=== PATIENT | female | born 1935 | race Caucasian/White ===

== ENCOUNTER 2016-06-02 14:44 | Observation (INO) | payer MEDICARE, BC ==
[2016-06-02] MEDS ORDERED: ASPIRIN 81 MG TABLET, CHEWABLE PO ONE (15:53)
--- NOTE | 2016-06-02 15:56 | ER Document Report ---
ED Medical Screen (RME) - General Stated Complaint: CHEST PAIN Mode of Arrival: Wheelchair Information source: Patient Notes: 80 y/o F presents to ED c/o episode of chest pressure. Reports onset was this morning with radiation to jaw and associated diaphoresis and generalized weakness. Denies fever or recent illness. I have greeted and performed a rapid initial assessment of this patient. A comprehensive ED assessment and evaluation of the patient, analysis of test results and completion of the medical decision making process will be conducted by additional ED providers. TRAVEL OUTSIDE OF THE [place] IN LAST 30 DAYS: No - Related Data Allergies/Adverse Reactions: No Known Allergies Allergy (Verified 06/02/16 15:53) Physical Exam - Vital signs Vitals: Temp Pulse Resp BP Pulse Ox 98.1 F 86 16 119/77 96 06/02/16 15:27 06/02/16 15:27 06/02/16 15:27 06/02/16 15:27 06/02/16 15:27 - General General appearance: Appears well, Alert In distress: None - Respiratory Respiratory status: No respiratory distress Breath sounds: Normal - Cardiovascular Rhythm: Regular Pulses: Normal: Radial Normal capillary refill: Yes Course - Vital Signs Vital signs: Temp Pulse Resp BP Pulse Ox 98.1 F 86 16 119/77 96 06/02/16 15:27 06/02/16 15:27 06/02/16 15:27 06/02/16 15:27 06/02/16 15:27
--- NOTE | 2016-06-02 16:37 | EKG REPORT ---
SEVERITY:- BORDERLINE ECG - SINUS RHYTHM BORDERLINE T ABNORMALITIES, ANTERIOR LEADS : Confirmed by: Diandra Blair MD 02-Jun-2016 16:35:18
[2016-06-02 17:09] LABS: ABSOLUTE LYMPHOCYTES (AUTO) 1.5 10^3/uL (0.5-4.7); ABSOLUTE MONOCYTES (AUTO) 0.9 10^3/uL (0.1-1.4); ABSOLUTE NEUT (AUTO) 2.4 10^3/uL (1.7-8.2); BASOPHILS % (AUTO) 0.3 % (0-2); EOSINOPHILS % (AUTO) 0.3 % (0-6); HEMATOCRIT 42.9 % (36.0-47.0); HEMOGLOBIN 14.2 g/dL (12.0-15.5); HGB HCT DIFFERENCE -0.3; LYMPHOCYTES % (AUTO) 30.7 % (13-45); MEAN CORPUSCULAR HEMOGLOBIN 30.7 pg (27.0-33.4); MEAN CORPUSCULAR HGB CONC 33.2 g/dL (32.0-36.0); MEAN CORPUSCULAR VOLUME 93 fl (80-97); MONOCYTES % (AUTO) 18.9 % (3-13); RED BLOOD COUNT 4.63 10^6/uL (3.72-5.28); RED CELL DISTRIBUTION WIDTH 14.3 % (11.5-14.0); SEGMENTED NEUTROPHILS % (AUTO) 49.8 % (42-78); WHITE BLOOD COUNT 4.8 10^3/uL (4.0-10.5)
[2016-06-02 17:26] LABS: ALANINE AMINOTRANSFERASE 35 U/L (9-52); ALBUMIN 4.3 g/dL (3.5-5.0); ALKALINE PHOSPHATASE 99 U/L (38-126); ANION GAP 12 (5-19); ASPARTATE AMINO TRANSFERASE 23 U/L (14-36); BILIRUBIN,TOTAL 0.9 mg/dL (0.2-1.3); BLOOD UREA NITROGEN 21 mg/dL (7-20); CARBON DIOXIDE 25 mmol/L (22-30); CHLORIDE 105 mmol/L (98-107); CREATINE KINASE 41 U/L (30-135); CREATININE RESULT 0.95 mg/dL (0.52-1.25); GLUCOSE 98 mg/dL (75-110); POTASSIUM 4.8 mmol/L (3.6-5.0); TOTAL PROTEIN 7.8 g/dL (6.3-8.2)
[2016-06-02 17:38] LABS: CREATINE KINASE MB 1.27 ng/mL (<4.55); TROPONIN I 0.015 ng/mL
[2016-06-02] MEDS ORDERED: NORMAL SALINE 1000 ML 1,000 ML IV ONE (18:31)
--- NOTE | 2016-06-02 18:43 | ER Document Report ---
ED General - General Chief Complaint: Chest Pain > 30 Stated Complaint: CHEST PAIN Time seen by provider: 18:25 Mode of Arrival: Wheelchair Information source: Patient Notes: 80-year-old female who states she woke up about 2:30 this morning with midsternal chest tightness radiating into her jaw associated with diaphoresis. She reports she had multiple episodes during the night which would last less than 30 minutes and then resolve in a serious episode was about 7:30 this morning. This is what prompted her to seek medical care today. He reports being pain-free now. He reports for many years she had a sensation of heart fluttering or jumping that would sometimes wake her up at night but she had not had that sensation today and has not had this type of chest discomfort before. She denies any prior cardiac workup except for an echocardiogram many years ago. 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 She reports with her chest discomfort she has not had any shortness of breath nausea or vomiting but family whether reports that she has had dyspnea on exertion over the past few months that is undertreated COPD. She denies swelling to extremities. She denies vomiting diarrhea or dysuria. She is blind and cannot state whether she's had any hematemesis or melena. She denies any abdominal pain, back pain, numbness weakness to extremities, or syncope. Physical Exam: General: Alert, appears well. HEENT: Normocephalic. Atraumatic. PERRLA. Extraocular movements intact. Oropharynx clear. Neck: Supple. Non-tender. Respiratory: No respiratory distress. Clear and equal breath sounds bilaterally. Not tender to palpation Cardiovascular: Regular rate and rhythm. Abdominal: Normal Inspection. Soft, non-tender. No distension. Normal Bowel Sounds. Back: Non-tender. No deformity or step off. Extremities: Moves all four extremities. Upper extremities: Normal inspection. Non-tender. Normal color. Normal ROM. Normal temperature. Lower extremities: Normal inspection. Non-tender. No edema. Normal color. Normal ROM. Normal temperature. Neurological: Speech clear mentation normal. Animal Shelter Worker strength 5 out of 5 equal both upper extremities motor function 5 out of 5 equal both lower extremities Psychological: Normal affect. Normal Mood. Skin: Warm. Dry. Normal color. TRAVEL OUTSIDE OF THE [place] 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 denies: Cough Gastrointestinal: See HPI. denies: Abdominal pain, Diarrhea, Nausea, Vomiting Genitourinary: denies: Burning, Dysuria Female Genitourinary: denies: Musculoskeletal: denies: Back pain, Muscle pain Hematologic/Lymphatic: denies: Swollen glands Neurological/Psychological: denies: Weakness, Numbness Physical Exam - Vital signs Vitals: Temp Pulse Resp BP Pulse Ox 98.1 F 86 16 119/77 96 06/02/16 15:27 06/02/16 15:27 06/02/16 15:27 06/02/16 15:27 06/02/16 15:27 Course - Re-evaluation Re-evalutation: 06/02/16 18:44 Patient has symptoms compatible with acute coronary syndrome. She did receive full dose aspirin and is pain-free now. I discussed case with Dr. Trammell of the hospitalist service and he accepts the patient requesting telemetry observation bed Patient has hypercalcemia currently and will receive IV fluids for that. She reports a prior history of thi but doesn't recall prior values however in July 2014 she was 11.4 06/02/16 18:46 - Vital Signs Vital signs: Temp Pulse Resp BP Pulse Ox 98.1 F 86 16 119/77 96 06/02/16 15:27 06/02/16 15:27 06/02/16 15:27 06/02/16 15:27 06/02/16 15:27 - Laboratory Result Diagrams: 06/02/16 16:50 06/02/16 16:50 Laboratory results interpreted by me: 06/02/16 06/02/16 16:50 16:50 RDW 14.3 H Plt Count 54 L Monocytes % 18.9 H BUN 21 H Est GFR (Non-Af Amer) 57 L Calcium 13.0 H* - Diagnostic Test Radiology reviewed: Image reviewed, Reports reviewed - EKG Interpretation by Me Additional EKG results interpreted by me: 06/02/16 18:43 EKG reviewed by myself shows sinus rhythm at 86 with an animal nonspecific T- wave changes Discharge - Discharge Clinical Impression: Hypercalcemia, History of idiopathic thrombocytopenic purpura Chest pain Qualifiers: Chest pain type: unspecified Qualified Code(s): R07.9 - Chest pain, unspecified Condition: Fair Disposition: ADMITTED OBSERVATION Admitting Provider: Hospitalist Unit Admitted: Telemetry
[2016-06-02 19:19] LABS: LIPASE 124.5 U/L (23-300); MAGNESIUM 2.2 mg/dL (1.6-2.3)
[2016-06-02 19:20] LABS: PARTIAL THROMBOPLASTIN TIME 33.1 SEC (23.5-35.8)
[2016-06-02] MEDS ORDERED: ACETAMINOPHEN 325 MG TABLET PO PRN (19:54)
[2016-06-02 20:22] LABS: APPEARANCE,URINE SLIGHTLY-CLOUDY; BILIRUBIN,URINE NEGATIVE (NEGATIVE); CALCIUM OXALATE CRYSTALS,URINE FEW /HPF; GLUCOSE, URINE NEGATIVE (NEGATIVE); KETONES,URINE TRACE mg/dL (NEGATIVE); LEUKOCYTE ESTERASE,URINE NEGATIVE (NEGATIVE); NITRITE,URINE NEGATIVE (NEGATIVE); PROTEIN,URINE NEGATIVE (NEGATIVE); URINE SPECIFIC GRAVITY 1.025; UROBILINOGEN,URINE NEGATIVE mg/dL (<2.0)
[2016-06-02 21:19] LABS: ANION GAP 9 (5-19); BLOOD UREA NITROGEN 20 mg/dL (7-20); CALCIUM 11.8 mg/dL (8.4-10.2); CARBON DIOXIDE 25 mmol/L (22-30); CHLORIDE 108 mmol/L (98-107); CREATININE RESULT 0.91 mg/dL (0.52-1.25); GLUCOSE 93 mg/dL (75-110); POTASSIUM 4.3 mmol/L (3.6-5.0)
[2016-06-03] MEDS ORDERED: MAG HYDROX/AL HYDROX/SIMETH SUSP 30 ML UDCUP PO PRN (07:51)
[2016-06-03] MEDS ORDERED: PROMETHAZINE HCL INJ 25 MG/1 ML VIAL IV PRN (08:01)
[2016-06-03 08:25] LABS: CHOLESTEROL 161.82 mg/dL (0-200); Direct HDL 55 mg/dL (>40); TRIGLYCERIDES 67 mg/dL (<150)
[2016-06-03 08:40] LABS: DIRECT LDL 78 mg/dL (<100)
--- NOTE | 2016-06-03 08:57 | PDOC H&P ---
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 The initial several episodes lasted approximately 30 minutes each and were slightly uncomfortable. However, approximately 7:30 AM the morning of the , she had a quite significant painful episode. This prompted her to seek medical care. She's had intermittent episodes of what she describes as heart fluttering or jumping that would sometimes wake her up at night along with mild associated chest tightness and perhaps some shortness of breath. However, this is quite different than the painful episodes that led her to come to the emergency room. Her only previous cardiac workup consisted of a distant history of an echocardiogram, with uncertain results. No previous myocardial infarction or congestive heart failure. No history of pulmonary embolus or DVT. No recent long trip with prolonged inactivity, or unusual lower extremity swelling or tenderness. Negative family history of coronary artery disease. Currently resting quietly, chest pain-free since the last episode caused such significant pain the morning of the . Underlying COPD; patient is a former smoker. 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 Patient has been discussed with emergency room physician who evaluated the patient. . Laboratory results are listed in [facility] and are reviewed. X-ray summary results are listed below, with full report(s) reviewed. . EKG reviewed. No old EKG available for comparison. Social history/personal habits: . Lives with daughter. Former smoker. No alcohol use for many years. No illicit drug use. Allergies/adverse reactions are listed in [facility] and are reviewed. Home medications are reviewed and have [facility] Home medications initially autopopulated into [facility] may not accurately reflect patient's true medications, dosages, and/or frequencies. REVIEW OF SYSTEMS: Constitutional: No fever or chills. Eyes: Legally blind. ENT: No swallowing problems or complaints. No hearing problems or complaints. Pulmonary: See history and present illness. Cardiovascular: See history and present illness. Gastrointestinal: No current complaints, including nausea or vomiting. Skin: Chronic intermittent rash, primarily involving the skin over her anterior chest. Hematologic: No unusual easy bruising or bleeding. Easy bruising. Neurologic: No current complaints, including numbness or tingling. Musculoskeletal: No current complaints, including painful joints. Psychiatric: No current complaints, including anxiety or depression. Endocrine: No current complaints, including polyuria. Genitourinary: No current complaints, including dysuria. PHYSICAL EXAMINATION: 5 feet 2 inches tall. 74.9 kg. Temperature 97.8. Respirations are 17 and unlabored. 99% saturation on room air. Pulse 66 and regular. Blood pressure 148/75. Slightly overweight otherwise well-nourished well-developed elderly female who appears a fair number of younger than her stated age. Pleasant awake alert and cooperative. Her daughter is present at her side; patient approves. Skin is warm and dry. No grossly obvious evidence of rash in areas of skin examined. No subcutaneous nodules palpated. ENT: Hearing grossly normal to normal conversation. Tongue midline on protrusion pink and slightly moist. Eyes: No scleral icterus. Pupils equal and reactive to light at 5 mm. [place] conjunctivae. Neck is supple and nontender to gentle active range of motion and palpation. Midline trachea. No palpable thyroid nodule mass enlargement or tenderness. Lymphatic: No palpable cervical or clavicular nodes. Neck and lymphatic exams limited by patient body habitus. Psychiatric: Reasonable insight into acute and chronic medical issues. Oriented to time location and why here. Lungs: Auscultation reveals clear and equal breath sounds bilaterally. No use of accessory respiratory muscles. Cardiovascular: Heart regular rate and rhythm, without gallop murmur or rub. No carotid or abdominal aortic bruits. No ankle or pedal edema. Faintly palpable dorsalis pedis pulses. Abdomen: soft, slightly obese, nontender with positive bowel sounds. No upper abdominal mass or organomegaly palpated. Compression in either her upper abdomen nor sternum reproduces her previously noted chest discomfort. Extremities: Feet are warm and dry. No calf tenderness to compression. No grossly obvious visual evidence of calf swelling. Gentle manipulation of lower extremities fails to reveal any obvious evidence of injury or instability to knees hips or ankles. Neurologic: Moves upper extremities grossly normally. Patellar reflexes absent. Absent Babinski. Light touch is intact at feet. Dorsiflexion and plantarflexion of feet 5 / 5 and symmetric. 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, Ears - Slightly hard of hearing Denies: Throat Neurological Medical History: Denies: Hemorrhagic CVA, Ischemic CVA, Seizures Endocrine Medical History: Reports: Other - Chronic hypercalcemia, due to chronic single gland hyperparathyroidism Denies: Diabetes Mellitus Type 1, Diabetes Mellitus Type 2, Hyperthyroidism, Hypothyroidism Renal/ Medical History: Reports: None GI Medical History: Reports: Gastroesophageal Reflux Disease - Mild Denies: Cirrhosis, Hepatitis, Peptic Ulcer Disease Musculoskeltal Medical History: Denies: Arthritis Skin Medical History: Reports: Other - Chronic intermittent skin rash over her anterior chest Psychiatric Medical History: Denies: Alcohol Dependency, Depression, General Anxiety Disorder, Substance Abuse, Tobacco Dependency Hematology: Reports: Other - Chronic thrombocytopenia due to chronic ITP. Infectious Medical History: Denies: Hepatitis B, Hepatitis C Past Surgical History Past Surgical History: Reports: Appendectomy, Tonsillectomy, Other - Foot surgery Social History Information Source: Patient, Emergency Med Personnel, [facility] Records Lives with: Family Smoking Status: Former Smoker Number of Years Smokin Last Time Smoked: 40years ago Frequency of Alcohol Use: None Drugs: None - Advance Directive Resuscitation Status: Full Code Surrogate healthcare decision maker:: Daughter Iris Family History Family History: denies: CAD Parental Family History Reviewed: Yes Children Family History Reviewed: Yes Sibling(s) Family History Reviewed.: Yes Medication/Allergy Home Medications: Cholecalciferol (Vitamin D3) [Vitamin D3 2000 unit Tablet] 2,000 unit PO DAILY 06/02/16 Famotidine [Pepcid 20 mg Tablet] 20 mg PO Q2D PRN 06/02/16 Ibuprofen [Motrin Ib] 200 mg PO DAILYP PRN 06/02/16 Lisinopril [Prinivil] 10 mg PO DAILY 06/02/16 Allergies/Adverse Reactions: Sulfa (Sulfonamide Antibiotics) Adverse Reaction (Verified 06/03/16 06:06) Physical Exam Vital Signs: Temp Pulse Resp BP Pulse Ox 97.8 F 59 L 17 148/75 H 99 06/03/16 05:00 06/03/16 07:32 06/03/16 05:00 06/03/16 05:00 06/03/16 05:00 Intake & Output 06/02/16 06/03/16 06/04/16 00:59 00:59 00:59 Intake Total 1180 Output Total 0 Balance 1180 Weight 74.9 kg Results Laboratory Results: 06/02/16 20:47 06/02/16 06/02/16 19:40 20:47 Sodium 142.0 Potassium 4.3 Chloride 108 H Carbon Dioxide 25 Anion Gap 9 BUN 20 Creatinine 0.91 Est GFR ( Amer) > 60 Est GFR (Non-Af Amer) > 60 Glucose 93 Calcium 11.8 H Urine Color YELLOW Urine Appearance SLIGHTLY-CLOUDY Urine pH 5.0 Ur Specific [place] 1.025 Urine Protein NEGATIVE Urine Glucose (UA) NEGATIVE Urine Ketones TRACE H Urine Blood MODERATE H Urine Nitrite NEGATIVE Ur Leukocyte Esterase NEGATIVE Urine WBC (Auto) 7 Urine RBC (Auto) 15 06/03/16 06/03/16 01:13 01:44 Troponin I Cancelled 0.016 Impressions: Chest X-Ray 06/02/16 15:53 IMPRESSION: No acute findings. Assessment & Plan - Diagnosis (1) Chest pain Qualifiers: Chest pain type: unspecified Qualified Code(s): R07.9 - Chest pain, unspecified Is this a current diagnosis for this admission?: YesPlan: Patient will be placed in observation bed under chest pain protocol. Patient understands to notify staff should chest pain recur. Serial troponin's . Repeat EKG. lipid panel. I have strongly encouraged patient not to get out of bed without notifying staff , to avoid a fall with injury. Knee high SCDs for DVT prophylaxis. Along with subcutaneous Lovenox . Impression and plans were discussed with patient, and daughter, both of whom concur. Time spent in evaluation and management of patient: 64 minutes. (2) Hypercalcemia Is this a current diagnosis for this admission?: YesPlan: From review of prior labs, current level is acceptable. Followed as outpatient by endocrinology. (3) Thrombocytopenia Is this a current diagnosis for this admission?: YesPlan: Stable, compared to prior lab. (4) HTN (hypertension) Qualifiers: Hypertension type: essential hypertension Qualified Code(s): I10 - Essential (primary) hypertension Is this a current diagnosis for this admission?: YesPlan: Resume home medications as appropriate once these have been reviewed. (5) MVP (mitral valve prolapse) Is this a current diagnosis for this admission?: Yes
[2016-06-03] MEDS ORDERED: (PENDING PHARMACY ID) (Lisinopril [Prinivil] 10 MG) PO SCH (10:00)
[2016-06-03] MEDS ORDERED: ENOXAPARIN SODIUM INJ 40 MG/0.4 ML DISP.SYRIN SUBCUT SCH (10:00)
[2016-06-03] MEDS ORDERED: (PENDING PHARMACY ID) (Cholecalciferol (Vitamin D3) [Vitamin D3 2000 Unit Tablet] 2,000 UN PO SCH (10:00)
[2016-06-03] MEDS: DOCUSATE SODIUM 100 MG CAPSULE PO SCH ×2 (10:29→17:38)
[2016-06-03] MEDS: ASPIRIN 81 MG TABLET, ENT COATED PO SCH (10:29)
[2016-06-03] MEDS: CHOLECALCIFEROL (D3) 1,000 UNIT TABLET PO SCH (10:29)
[2016-06-03] MEDS: LISINOPRIL 10 MG TABLET PO SCH (10:31)
--- NOTE | 2016-06-03 16:40 | PDOC PROGRESS REPORT ---
Subjective Progress Note for:: 06/03/16 Subjective:: The patient was seen earlier today on rounds. The patient denies any nausea, vomiting, diarrhea, shortness of breath, dizziness, chest pain, heart palpitations, fevers, or chills. The patient has remained afebrile. Blood pressures have been in a good range. When prompted the patient voices no other concerns at this time. Review of systems: The rest of the review of systems is negative. Physical Exam Vital Signs: Temp Pulse Resp BP Pulse Ox 98.1 F 61 20 142/62 H 100 06/03/16 11:35 06/03/16 11:35 06/03/16 11:35 06/03/16 11:35 06/03/16 11:35 General appearance: PRESENT: no acute distress, cooperative, well-developed, well-nourished Head exam: PRESENT: atraumatic, normocephalic Eye exam: PRESENT: conjunctiva pink, EOMI, PERRLA. ABSENT: scleral icterus Ear exam: PRESENT: normal external ear exam Mouth exam: PRESENT: moist, tongue midline Neck exam: ABSENT: carotid bruit, JVD, lymphadenopathy, thyromegaly Respiratory exam: PRESENT: clear to auscultation linda, symmetrical, unlabored. ABSENT: rales, rhonchi, tachypnea, wheezes Cardiovascular exam: PRESENT: RRR. ABSENT: diastolic murmur, rubs, systolic murmur Pulses: PRESENT: normal dorsalis pedis pul Vascular exam: PRESENT: normal capillary refill GI/Abdominal exam: PRESENT: normal bowel sounds, soft. ABSENT: distended, guarding, mass, organolmegaly, rebound, tenderness Rectal exam: PRESENT: deferred Extremities exam: PRESENT: full ROM. ABSENT: calf tenderness, clubbing, pedal edema Neurological exam: PRESENT: alert, awake, oriented to person, oriented to place , oriented to time, oriented to situation, CN II-XII grossly intact. ABSENT: motor sensory deficit Psychiatric exam: PRESENT: appropriate affect, normal mood. ABSENT: homicidal ideation, suicidal ideation Skin exam: PRESENT: dry, intact, warm. ABSENT: cyanosis, rash Results Laboratory Results: Labs- Last Values WBC 4.8 10^3/uL (4.0-10.5) 06/02/16 16:50 RBC 4.63 10^6/uL (3.72-5.28) 06/02/16 16:50 Hgb 14.2 g/dL (12.0-15.5) 06/02/16 16:50 Hct 42.9 % (36.0-47.0) 06/02/16 16:50 MCV 93 fl (80-97) 06/02/16 16:50 MCH 30.7 pg (27.0-33.4) 06/02/16 16:50 MCHC 33.2 g/dL (32.0-36.0) 06/02/16 16:50 RDW 14.3 % (11.5-14.0) H 06/02/16 16:50 Plt Count 54 10^3/uL (150-450) L 06/02/16 16:50 Seg Neutrophils % 49.8 % (42-78) 06/02/16 16:50 Lymphocytes % 30.7 % (13-45) 06/02/16 16:50 Monocytes % 18.9 % (3-13) H 06/02/16 16:50 Eosinophils % 0.3 % (0-6) 06/02/16 16:50 Basophils % 0.3 % (0-2) 06/02/16 16:50 Absolute Neutrophils 2.4 10^3/uL (1.7-8.2) 06/02/16 16:50 Absolute Lymphocytes 1.5 10^3/uL (0.5-4.7) 06/02/16 16:50 Absolute Monocytes 0.9 10^3/uL (0.1-1.4) 06/02/16 16:50 Absolute Eosinophils 0.0 10^3/uL (0.0-0.6) 06/02/16 16:50 Absolute Basophils 0.0 10^3/uL (0.0-0.2) 06/02/16 16:50 PT 13.0 SEC (11.4-15.4) 06/02/16 16:50 INR 0.95 06/02/16 16:50 APTT 33.1 SEC (23.5-35.8) 06/02/16 16:50 Sodium 142.0 mmol/L (137-145) 06/02/16 20:47 Potassium 4.3 mmol/L (3.6-5.0) 06/02/16 20:47 Chloride 108 mmol/L (98-107) H 06/02/16 20:47 Carbon Dioxide 25 mmol/L (22-30) 06/02/16 20:47 Anion Gap 9 (5-19) 06/02/16 20:47 BUN 20 mg/dL (7-20) 06/02/16 20:47 Creatinine 0.91 mg/dL (0.52-1.25) 06/02/16 20:47 Est GFR ( Amer) > 60 (>60) 06/02/16 20:47 Est GFR (Non-Af Amer) > 60 (>60) 06/02/16 20:47 Glucose 93 mg/dL (75-110) 06/02/16 20:47 Calcium 11.8 mg/dL (8.4-10.2) H 06/02/16 20:47 Magnesium 2.2 mg/dL (1.6-2.3) 06/02/16 16:50 Total Bilirubin 0.9 mg/dL (0.2-1.3) 06/02/16 16:50 Direct Bilirubin 0.0 mg/dL (0.0-0.3) 06/02/16 16:50 AST 23 U/L (14-36) 06/02/16 16:50 ALT 35 U/L (9-52) 06/02/16 16:50 Alkaline Phosphatase 99 U/L (38-126) 06/02/16 16:50 Creatine Kinase 41 U/L (30-135) 06/02/16 16:50 CK-MB (CK-2) 1.27 ng/mL (<4.55) 06/02/16 16:50 Troponin I 0.021 ng/mL 06/03/16 07:08 Total Protein 7.8 g/dL (6.3-8.2) 06/02/16 16:50 Albumin 4.3 g/dL (3.5-5.0) 06/02/16 16:50 Triglycerides 67 mg/dL (<150) 06/03/16 07:08 Cholesterol 161.82 mg/dL (0-200) 06/03/16 07:08 LDL Cholesterol Direct 78 mg/dL (<100) 06/03/16 07:08 VLDL Cholesterol 13.0 mg/dL (10-31) 06/03/16 07:08 HDL Cholesterol 55 mg/dL (>40) 06/03/16 07:08 Lipase 124.5 U/L (23-300) 06/02/16 16:50 Urine Color YELLOW 06/02/16 19:40 Urine Appearance SLIGHTLY-CLOUDY 06/02/16 19:40 Urine pH 5.0 (5.0-9.0) 06/02/16 19:40 Ur Specific [place] 1.025 06/02/16 19:40 Urine Protein NEGATIVE mg/dL (NEGATIVE) 06/02/16 19:40 Urine Glucose (UA) NEGATIVE mg/dL (NEGATIVE) 06/02/16 19:40 Urine Ketones TRACE mg/dL (NEGATIVE) H 06/02/16 19:40 Urine Blood MODERATE (NEGATIVE) H 06/02/16 19:40 Urine Nitrite NEGATIVE (NEGATIVE) 06/02/16 19:40 Urine Bilirubin NEGATIVE (NEGATIVE) 06/02/16 19:40 Urine Urobilinogen NEGATIVE mg/dL (<2.0) 06/02/16 19:40 Ur Leukocyte Esterase NEGATIVE (NEGATIVE) 06/02/16 19:40 Urine WBC (Auto) 7 /HPF 06/02/16 19:40 Urine RBC (Auto) 15 /HPF 06/02/16 19:40 U Hyaline Cast (Auto) 15 /LPF 06/02/16 19:40 Squamous Epi Cells Auto <1 /HPF 06/02/16 19:40 Calcium Oxalate Cr Auto FEW /HPF 06/02/16 19:40 Urine Mucus (Auto) OCC /LPF 06/02/16 19:40 Urine Ascorbic Acid 20 (NEGATIVE) H 06/02/16 19:40 Impressions: Chest X-Ray 06/02/16 15:53 IMPRESSION: No acute findings. Assessment & Plan - Diagnosis (1) Chest pain Qualifiers: Chest pain type: unspecified Qualified Code(s): R07.9 - Chest pain, unspecified Is this a current diagnosis for this admission?: YesPlan: Given the patient's risk factors and inability to stress test discussed the case with cardiology who is graciously agreed the patient. Obtain echocardiogram given the patient's previous history of possible mitral valve prolapse and no follow-up the patient does admit to some heart palpitations. (2) Chronic ITP (idiopathic thrombocytopenic purpura) Is this a current diagnosis for this admission?: YesPlan: The patient is ambulatory will discontinue heparin (3) Hypercalcemia Is this a current diagnosis for this admission?: YesPlan: Will continue home medications. (4) Thrombocytopenia Is this a current diagnosis for this admission?: Yes (5) HTN (hypertension) Qualifiers: Hypertension type: essential hypertension Qualified Code(s): I10 - Essential (primary) hypertension Is this a current diagnosis for this admission?: Yes (6) Hyperparathyroidism Is this a current diagnosis for this admission?: Yes (7) Legally blind Is this a current diagnosis for this admission?: Yes (8) MVP (mitral valve prolapse) Is this a current diagnosis for this admission?: Yes (9) Retinitis pigmentosa of both eyes Is this a current diagnosis for this admission?: Yes - Time Time Spent with patient: 35 or more minutes Medications reviewed and adjusted accordingly: Yes Anticipated discharge: Home Within: within 24 hours
[2016-06-03] MEDS: LANSOPRAZOLE 30 MG TAB.RAP.DR PO SCH (17:37)
--- NOTE | 2016-06-03 18:06 | EKG REPORT ---
SEVERITY:- ABNORMAL ECG - SINUS RHYTHM FIRST DEGREE AV BLOCK BORDERLINE T ABNORMALITIES, ANTERIOR LEADS : Confirmed by: Diandra Blair MD 03-Jun-2016 18:04:23
--- NOTE | 2016-06-03 18:23 | XCELERA REPORT ---
[address] [address] Transthoracic Echocardiogram Report Name: WERNER SCHAEFFER Age: 80 yrs Gender: Female : 1935 Patient Status: Inpatient Patient Location: \S\[facility]\S\A Study Date: 06/03/2016 03:16 PM Height: 62 in Weight: 165 lb BSA: 1.8 m2 Procedure: A complete two-dimensional transthoracic echocardiogram was performed (2D, M-mode, spectral and color flow Doppler). The study was technically difficult with many images being suboptimal in quality. Reason For Study: CP Ordering Physician: LINUS MONDRAGON Performed By: Jhony Devi Interpretation Summary The left ventricular ejection fraction is normal. Doppler measurements suggest impaired left ventricular relaxation, which is associated with grade I/IV or mild diastolic dysfunction There is normal left ventricular wall thickness. The left ventricle is grossly normal size. Wall motion cannot be accurately commented on, but no definite regional wall motion abnormalities noted. The right ventricular systolic function is normal. The right ventricle is mildly dilated. The right atrium is mildly dilated. Borderline left atrial enlargement. There is a mild amount of mitral regurgitation There is no mitral valve stenosis. There is a mild amount of aortic regurgitation There is no aortic valve stenosis There is a trace to mild amount of tricuspid regurgitation There is mild to moderate pulmonary hypertension by echo Right ventricular systolic pressure is estimated to be elevated at 40- 50mmHg. The aortic root is not well visualized but is probably normal size. The inferior vena cava appeared normal and decreased < 50% with respiration (RAP 10-15 mmHg) There is no pericardial effusion. MMode/2D Measurements \T\ Calculations RVDd: 2.0 cm LVIDd: 4.5 cm FS: 33.7 % Ao root diam: 2.8 cm IVSd: 0.82 cm LVIDs: 3.0 cm EDV(Teich): 94.7 ml LVPWd: 0.78 cm ESV(Teich): 35.4 ml Ao root area: 6.0 cm2 EF(Teich): 62.6 % LA dimension: 3.6 cm Doppler Measurements \T\ Calculations MV E max maegan: MV P1/2t max maegan: Ao V2 max: AI max maegan: 54.4 cm/sec 54.8 cm/sec 146.6 cm/sec 388.9 cm/sec MV A max maegan: MV P1/2t: 63.8 msec Ao max PG: AI max P.0 cm/sec 8.6 mmHg 60.6 mmHg MV E/A: 0.79 MVA(P1/2t): 3.4 cm2 AI dec slope: MV dec slope: 251.4 cm/sec2 189.6 cm/sec2 MV dec time: AI P1/2t: 0.22 sec 600.9 msec LV V1 max PG: PA V2 max: TR max maegan: RAP systole: 3.9 mmHg 98.7 cm/sec 275.5 cm/sec 10.0 mmHg LV V1 max: PA max P.9 mmHg TR max P.7 cm/sec 30.4 mmHg RVSP(TR): 40.4 mmHg Left Ventricle The left ventricle is grossly normal size. There is normal left ventricular wall thickness. The left ventricular ejection fraction is normal. Doppler measurements suggest impaired left ventricular relaxation, which is associated with grade I/IV or mild diastolic dysfunction. Wall motion cannot be accurately commented on, but no definite regional wall motion abnormalities noted. Right Ventricle The right ventricle is mildly dilated. There is normal right ventricular wall thickness. The right ventricular systolic function is normal. Atria The right atrium is mildly dilated. Borderline left atrial enlargement. Interarterial septum not well visualized and not well dopplered. Cannot comment on ASD/PFO presence. Mitral Valve There is mild mitral leaflet calcification. There is no mitral valve stenosis. There is a mild amount of mitral regurgitation. Aortic Valve The aortic valve is mildly calcified. There is no aortic valve stenosis. There is a mild amount of aortic regurgitation. Tricuspid Valve The tricuspid valve is not well visualized secondary to technical limitations. There is no tricuspid stenosis. There is a trace to mild amount of tricuspid regurgitation. There is mild to moderate pulmonary hypertension by echo. Right ventricular systolic pressure is estimated to be elevated at 40-50mmHg. Pulmonic Valve The pulmonic valve is not well visualized. Great Vessels The aortic root is not well visualized but is probably normal size. The inferior vena cava appeared normal and decreased < 50% with respiration (RAP 10-15 mmHg). Effusions There is no pericardial effusion. : LINUS MONDRAGON > Linus Mondragon
--- NOTE | 2016-06-03 20:31 | PDOC CONSULTATION ---
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 The initial several episodes lasted approximately 30 minutes each and were slightly uncomfortable. However, approximately 7:30 AM the morning of the , she had a quite significant painful episode. This prompted her to seek medical care. She's had intermittent episodes of what she describes as heart fluttering or jumping that would sometimes wake her up at night along with mild associated chest tightness and perhaps some shortness of breath. However, this is quite different than the painful episodes that led her to come to the emergency room. Her only previous cardiac workup consisted of a distant history of an echocardiogram, with uncertain results. No previous myocardial infarction or congestive heart failure. No history of pulmonary embolus or DVT. No recent long trip with prolonged inactivity, or unusual lower extremity swelling or tenderness. Negative family history of coronary artery disease. Currently resting quietly, chest pain-free since the last episode caused such significant pain the morning of the . Underlying COPD; patient is a former smoker. 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 This history was confirmed and supplemented. Agree with above. Patient does admit to having some acid reflux now and then. Patient also describes difficulty falling asleep and staying asleep. She describes nocturnal palpitations waking her up associated with chest pain. Patient denied any history of panic attacks. Patient does give history of loud snoring. She has daytime fatigue and sleepiness. 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, Ears - Slightly hard of hearing, Other - Chronic thrombocytopenia due to chronic ITP. Denies: Throat Neurological Medical History: Denies: Hemorrhagic CVA, Ischemic CVA, Seizures Endocrine Medical History: Reports: Other - Chronic hypercalcemia, due to chronic single gland hyperparathyroidism Denies: Diabetes Mellitus Type 1, Diabetes Mellitus Type 2, Hyperthyroidism, Hypothyroidism Renal/ Medical History: Reports: None GI Medical History: Reports: Gastroesophageal Reflux Disease - Mild Denies: Cirrhosis, Hepatitis, Peptic Ulcer Disease Musculoskeltal Medical History: Denies: Arthritis Skin Medical History: Reports: Other - Chronic intermittent skin rash over her anterior chest Psychiatric Medical History: Denies: Alcohol Dependency, Depression, General Anxiety Disorder, Substance Abuse, Tobacco Dependency Hematology: Reports: Other - Chronic thrombocytopenia due to chronic ITP. Infectious Medical History: Denies: Hepatitis B, Hepatitis C Past Surgical History Past Surgical History: Reports: Appendectomy, Tonsillectomy, Other - Foot surgery Social History Information Source: Patient Lives with: Family Smoking Status: Former Smoker Number of Years Smokin Last Time Smoked: 40years ago Frequency of Alcohol Use: None Drugs: None - Advance Directive Resuscitation Status: Full Code Family History Family History: Reviewed & Not Pertinent. denies: CAD Parental Family History Reviewed: Yes Children Family History Reviewed: Yes Sibling(s) Family History Reviewed.: Yes - Negative for premature coronary artery disease or sudden cardiac in the family amongst first degree relatives. Medication/Allergy Home Medications: Cholecalciferol (Vitamin D3) [Vitamin D3 2000 unit Tablet] 2,000 unit PO DAILY 06/02/16 Famotidine [Pepcid 20 mg Tablet] 20 mg PO Q2D PRN 06/02/16 Ibuprofen [Motrin Ib] 200 mg PO DAILYP PRN 06/02/16 Lisinopril [Prinivil] 10 mg PO DAILY 06/02/16 Allergies/Adverse Reactions: Sulfa (Sulfonamide Antibiotics) Adverse Reaction (Verified 06/03/16 06:06) Review of Systems Review of Systems: Please see history of present illness and past medical history as wall. Constitutional: No fever or chills reported. Head : No recent chronic headaches, recent head injury. Eyes: No recent eye pain, diplopia, redness, discharge, acute visual changes. Patient does have chronic blindness from retinitis pigmentosa. Ears: No recent chronic ear pain, acute hearing loss, ear discharge. Oral cavity: No recent ulcerations, bleeding, oral cavity discomfort. Neck: No recent acute neck pain reported. Hematologic: No recent easy bruising or bleeding or hematologic malignancy reported. Lymphatic: No recent lymphatic malignancy, chronic lymphadenopathy reported yet Cardiovascular system review: See history of present illness. Respiratory system review: No recent chronic cough, hemoptysis, blood clots in the lungs reported. Mild Shortness of breath on exertion Gastrointestinal system review: Negative for any recent acute or chronic abdominal pain, hematemesis, melena, recent change in bowel habits. Genitourinary system review: No recent acute or chronic hematuria, flank pain, UTI etc. reported. Skin system review: Negative for any recent abnormal bruising, no rash, no pruritus reported. Neurologic: No prior history of strokes, mini strokes, seizure disorder. Psychologic: No history of major psychosis or depression reported. Musculoskeletal: Minor aches and pains reported. No acute joint swelling reported. Endocrine: No recent polyuria, polydipsia, recent heat or cold intolerance. Physical Exam Vital Signs: Temp Pulse Resp BP Pulse Ox 98.3 F 78 18 126/76 H 97 06/03/16 15:47 06/03/16 15:47 06/03/16 15:47 06/03/16 15:47 06/03/16 15:47 Intake & Output 06/02/16 06/03/16 06/04/16 06:59 06:59 06:59 Intake Total 360 Balance 360 Exam: GENERAL: well-nourished and in no acute distress. Alert and oriented x3 HEAD: Atraumatic, normocephalic. EYES: Pupils equal round and sluggish reactive to light, extraocular movements intact, sclera anicteric, conjunctiva are normal. Patient has legal blindness from retinitis pigmentosa. ENT: TMs normal, nares patent, oropharynx clear without exudates. Moist mucous membranes. No oral ulcerations or bleeding gums noted NECK: supple without lymphadenopathy. Trachea is central. No cervical or axillary lymphadenopathy noted. Carotids are 2+, JVD WNL LUNGS: Respiration seems nonlabored, no significant accessory muscle action noted. Breath sounds clear to auscultation bilaterally and equal noted. No wheezes rales or rhonchi noted. No significant dullness noted on percussion. CHEST: Palpation of the chest wall shows no significant chest wall tenderness. No other significant abnormalities noted. HEART: [place] [facility], No PSH, 1/6 FRED aortic area, 1/6 zuñiga systolic murmur mitral area, no rubs, no gallops. ABDOMEN: Soft, no significant tenderness appreciated, normoactive bowel sounds. No guarding, no rebound. No rigidity noted . No masses appreciated. EXTREMITIES: Pedal pulses are 1-2+, no calf tenderness noted. No clubbing or cyanosis.trace to 1+ pedal edema noted NEUROLOGICAL: Focused neurological exam showed no significant neurologic deficit. Normal speech, no focal weakness appreciated. PSYCH: Normal mood, normal affect. Judgment and insight within normal limits. SKIN: No significant ecchymosis, rash, ulcerations or signs of pruritus noted. MUSCULOSKELETAL EXAM: No significant joint swelling noted. Results Impressions: Chest X-Ray 06/02/16 15:53 IMPRESSION: No acute findings. Assessment & Plan - Diagnosis (1) Chest pain Qualifiers: Chest pain type: unspecified Qualified Code(s): R07.9 - Chest pain, unspecified Is this a current diagnosis for this admission?: Yes (4) HTN (hypertension) Qualifiers: Hypertension type: essential hypertension Qualified Code(s): I10 - Essential (primary) hypertension Is this a current diagnosis for this admission?: Yes - Notes Notes: Chest pain: Patient has some typical and atypical features of chest pain. Cardiac enzymes so far has been negative. Electrocardiogram did not show any definitive ST segment changes. Multiple differential diagnoses exist in this patient. In descending order of probability this includes underlying coronary artery disease, gastroesophageal reflux, musculoskeletal pain, referred pain from elsewhere, anxiety panic disorder etc.Patient has significant cardiac risk factors, which indicates that there is a intermediate probability of chest discomfort coming from underlying CAD. Feel that it would need to be evaluated further. Discussed evaluation to assess this. In this regard risk benefits of nuclear stress test and other alternative processes were discussed in detail. The patient prefers to undergo nuclear stress test. Because of the weekend, if patient remains stable without any recurrence of chest pain, she could be discharged with stress test being performed as an outpatient. Did order a 2-D echo to be performed for further risk assessment. Palpitations: Patient describes nocturnal palpitations and also some daytime palpitations which are associated with chest pain. Discussed that this could be evaluated also has an outpatient with a event monitor. Sleep disordered breathing: Patient describes history of loud snoring, habitual fatigue and tiredness as well as nocturnal palpitations and nocturnal waking. Discussed evaluation with a sleep study as an outpatient. Patient is agreeable to pursue this. Hypertension:Hypertension: Reasonably well controlled. Blood pressure goal in this patient is 140/90 or less. This was discussed with the patient. Currently blood pressure under reasonable control. Better medication for this patient are FAITH inhibitor/ARB/beta lukasz etc. discussed side effects of uncontrolled hypertension and also severe hypotension. - Time Time Spent: 30 to 50 Minutes - CODE STATUS was discussed, patient remains full code. Surrogate decision-maker ration's daughter. Multiple medical problems were addressed.More than 50% of the time spent coordinating care, discussing management plans with involved caregivers. Management plans discussed with involved personnels. Medical decision making was of moderate complexity.
[2016-06-04] MEDS: LANSOPRAZOLE 30 MG TAB.RAP.DR PO SCH (05:22)
[2016-06-04 08:40] VITALS: BP 119/69
[2016-06-04] MEDS: DOCUSATE SODIUM 100 MG CAPSULE PO SCH (10:19)
[2016-06-04] MEDS: ASPIRIN 81 MG TABLET, ENT COATED PO SCH (10:20)
[2016-06-04] MEDS: CHOLECALCIFEROL (D3) 1,000 UNIT TABLET PO SCH (10:20)
[2016-06-04] MEDS: LISINOPRIL 10 MG TABLET PO SCH (10:20)
[2016-06-04] MEDS ORDERED: NORMAL SALINE 1000 ML 1,000 ML IV PRN (10:26)
--- NOTE | 2016-06-04 14:08 | PDOC PROGRESS REPORT ---
Subjective Progress Note for:: 06/04/16 Subjective:: Patient seems to be doing better with significant improvement. Pt is denying any chest arm or neck discomfort. Patient denying any PND, orthopnea. Patient denied any sustained palpitations, dizziness, syncope, near syncope. Patient denying any fever chills. Patient denying any other significant discomfort. Patient is maintaining sinus rhythm. Review of systems: Rest review of systems negative. Medications: Medications have been reviewed. Physical Exam Vital Signs: Temp Pulse Resp BP Pulse Ox 98.3 F 54 L 18 119/69 100 06/04/16 11:26 06/04/16 11:26 06/04/16 11:26 06/04/16 11:26 06/04/16 11:26 Intake & Output 06/03/16 06/04/16 06/05/16 06:59 06:59 06:59 Intake Total 565 Balance 565 Exam: GENERAL: well-nourished and in no acute distress. Alert and oriented x3 HEAD: Atraumatic, normocephalic. EYES: Pupils equal round, extraocular movements intact, sclera anicteric, conjunctiva are normal. Patient blind both eyes from retinitis pigmentosa. ENT: TMs normal, nares patent, oropharynx clear without exudates. Moist mucous membranes. No oral ulcerations or bleeding gums noted NECK: supple without lymphadenopathy. Trachea is central. No cervical or axillary lymphadenopathy noted. Carotids are 2+, JVD WNL LUNGS: Respiration seems nonlabored, no significant accessory muscle action noted. Breath sounds clear to auscultation bilaterally and equal noted. No wheezes rales or rhonchi noted. No significant dullness noted on percussion. CHEST: Palpation of the chest wall shows no significant chest wall tenderness. No other significant abnormalities noted. HEART: [place] [employer], No PSH, 1/6 FRED aortic area, 1/6 zuñiga systolic murmur mitral area, no rubs, no gallops. ABDOMEN: Soft, no significant tenderness appreciated, normoactive bowel sounds. No guarding, no rebound. No rigidity noted . No masses appreciated. EXTREMITIES: Pedal pulses are 1-2+, no calf tenderness noted. No clubbing or cyanosis.trace to 1+ pedal edema noted NEUROLOGICAL: Focused neurological exam showed no significant neurologic deficit. Normal speech, no focal weakness appreciated. PSYCH: Normal mood, normal affect. Judgment and insight within normal limits. SKIN: No significant ecchymosis, rash, ulcerations or signs of pruritus noted. MUSCULOSKELETAL EXAM: No significant joint swelling noted. Results Impressions: Chest X-Ray 06/02/16 15:53 IMPRESSION: No acute findings. Assessment & Plan - Diagnosis (1) Chest pain Qualifiers: Chest pain type: unspecified Qualified Code(s): R07.9 - Chest pain, unspecified Is this a current diagnosis for this admission?: Yes (4) HTN (hypertension) Qualifiers: Hypertension type: essential hypertension Qualified Code(s): I10 - Essential (primary) hypertension Is this a current diagnosis for this admission?: Yes (5) Bradycardia Is this a current diagnosis for this admission?: Yes - Notes Notes: Chest pain: Resolved. Patient to be scheduled a nuclear stress test as an outpatient. Palpitations: Patient to have a event monitor as an outpatient. Sleep disordered breathing: Patient to schedule a sleep study as an outpatient. Hypertension: Blood pressure reasonably well controlled. Bradycardia: Nocturnal, sleep-related, possibly related to underlying sleep apnea. Currently asymptomatic. Patient to report any overt syncope or near syncope. - Time Time with patient: 15-25 minutes - CODE STATUS was discussed, patient remains full code. Surrogate decision-maker unchanged. Multiple medical problems were addressed.More than 50% of the time spent coordinating care, discussing management plans with involved caregivers. Management plans discussed with involved personnels. Medical decision making was of moderate complexity. Medications reviewed and adjusted accordingly: Yes
--- NOTE | 2016-06-04 16:36 | PDOC DISCHARGE SUMMARY ---
General - Admit/Disc Date/PCP Admission Date/Primary Care Provider: 06/03/16 07:51 LILI BERUMEN MD Consulting hospitality host: Dr. Lezama Discharge Date: 06/04/16 - Discharge Diagnosis (1) Chest pain Is this a current diagnosis for this admission?: Yes (2) Chronic ITP (idiopathic thrombocytopenic purpura) Is this a current diagnosis for this admission?: Yes (3) Hypercalcemia Is this a current diagnosis for this admission?: Yes (4) Thrombocytopenia Is this a current diagnosis for this admission?: Yes (5) HTN (hypertension) Is this a current diagnosis for this admission?: Yes (6) Hyperparathyroidism Is this a current diagnosis for this admission?: Yes (7) Legally blind Is this a current diagnosis for this admission?: Yes (8) Retinitis pigmentosa of both eyes Is this a current diagnosis for this admission?: Yes - Additional Information Resuscitation Status: Full Code Discharge Diet: As Tolerated Discharge Activity: Activity As Tolerated Home Medications: Cholecalciferol (Vitamin D3) [Vitamin D3 2000 unit Tablet] 2,000 unit PO DAILY 06/02/16 Lisinopril [Prinivil] 10 mg PO DAILY 06/02/16 Aspirin [Ecotrin 81 mg EC Tablet] 81 mg PO DAILY #30 tabec 06/04/16 Omeprazole 20 mg PO BID #28 capsule. 06/04/16 History of Present Illness Patient complains of: Chest pain History of Present Illness: WERNER SCHAEFFER is a 80 year old female with underlying hypertension, mitral valve prolapse, chronic thrombocytopenia due to ITP, and chronic hypercalcemia, due to chronic single gland hyperparathyroidism, with surgery not performed due to her chronic thrombocytopenia who presents to the emergency room for evaluation of several episodes over the previous 24 hours of at times pronounced midsternal chest tightness which radiated into her jaw, along with associated diaphoresis. The initial several episodes lasted approximately 30 minutes each and were slightly uncomfortable. However, approximately 7:30 AM the morning of the , she had a quite significant painful episode. This prompted her to seek medical care. She's had intermittent episodes of what she describes as heart fluttering or jumping that would sometimes wake her up at night along with mild associated chest tightness and perhaps some shortness of breath. However, this is quite different than the painful episodes that led her to come to the emergency room. Her only previous cardiac workup consisted of a distant history of an echocardiogram, with uncertain results. No previous myocardial infarction or congestive heart failure. No history of pulmonary embolus or DVT. No recent long trip with prolonged inactivity, or unusual lower extremity swelling or tenderness. Negative family history of coronary artery disease. Currently resting quietly, chest pain-free since the last episode caused such significant pain the morning of the . Underlying COPD; patient is a former smoker. 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 Hospital Course Hospital Course: The patient was observed in a continues telemetry unit, serial cardiac enzymes were obtained which were nonsuggestive. The patient's EKG revealed no acute changes and the patient had no events on quality assurance monitor final. Patient had no further replication of symptoms. The patient was seen by Dr. Lezama with cardiology. The patient underwent echocardiogram. The patient has been cleared for discharge from a cardiology perspective with the gradients she will follow-up for outpatient stress testing. Physical Exam Vital Signs: Temp Pulse Resp BP Pulse Ox 98.3 F 54 L 18 119/69 100 06/04/16 11:26 06/04/16 11:26 06/04/16 11:26 06/04/16 11:26 06/04/16 11:26 Intake & Output 06/02/16 06/03/16 06/04/16 23:59 23:59 23:59 Intake Total 560 5 Balance 560 5 Results Laboratory Results: Labs- Last Values WBC 4.8 10^3/uL (4.0-10.5) 06/02/16 16:50 RBC 4.63 10^6/uL (3.72-5.28) 06/02/16 16:50 Hgb 14.2 g/dL (12.0-15.5) 06/02/16 16:50 Hct 42.9 % (36.0-47.0) 06/02/16 16:50 MCV 93 fl (80-97) 06/02/16 16:50 MCH 30.7 pg (27.0-33.4) 06/02/16 16:50 MCHC 33.2 g/dL (32.0-36.0) 06/02/16 16:50 RDW 14.3 % (11.5-14.0) H 06/02/16 16:50 Plt Count 54 10^3/uL (150-450) L 06/02/16 16:50 Seg Neutrophils % 49.8 % (42-78) 06/02/16 16:50 Lymphocytes % 30.7 % (13-45) 06/02/16 16:50 Monocytes % 18.9 % (3-13) H 06/02/16 16:50 Eosinophils % 0.3 % (0-6) 06/02/16 16:50 Basophils % 0.3 % (0-2) 06/02/16 16:50 Absolute Neutrophils 2.4 10^3/uL (1.7-8.2) 06/02/16 16:50 Absolute Lymphocytes 1.5 10^3/uL (0.5-4.7) 06/02/16 16:50 Absolute Monocytes 0.9 10^3/uL (0.1-1.4) 06/02/16 16:50 Absolute Eosinophils 0.0 10^3/uL (0.0-0.6) 06/02/16 16:50 Absolute Basophils 0.0 10^3/uL (0.0-0.2) 06/02/16 16:50 PT 13.0 SEC (11.4-15.4) 06/02/16 16:50 INR 0.95 06/02/16 16:50 APTT 33.1 SEC (23.5-35.8) 06/02/16 16:50 Sodium 142.0 mmol/L (137-145) 06/02/16 20:47 Potassium 4.3 mmol/L (3.6-5.0) 06/02/16 20:47 Chloride 108 mmol/L (98-107) H 06/02/16 20:47 Carbon Dioxide 25 mmol/L (22-30) 06/02/16 20:47 Anion Gap 9 (5-19) 06/02/16 20:47 BUN 20 mg/dL (7-20) 06/02/16 20:47 Creatinine 0.91 mg/dL (0.52-1.25) 06/02/16 20:47 Est GFR ( Amer) > 60 (>60) 06/02/16 20:47 Est GFR (Non-Af Amer) > 60 (>60) 06/02/16 20:47 Glucose 93 mg/dL (75-110) 06/02/16 20:47 Calcium 11.8 mg/dL (8.4-10.2) H 06/02/16 20:47 Magnesium 2.2 mg/dL (1.6-2.3) 06/02/16 16:50 Total Bilirubin 0.9 mg/dL (0.2-1.3) 06/02/16 16:50 Direct Bilirubin 0.0 mg/dL (0.0-0.3) 06/02/16 16:50 AST 23 U/L (14-36) 06/02/16 16:50 ALT 35 U/L (9-52) 06/02/16 16:50 Alkaline Phosphatase 99 U/L (38-126) 06/02/16 16:50 Creatine Kinase 41 U/L (30-135) 06/02/16 16:50 CK-MB (CK-2) 1.27 ng/mL (<4.55) 06/02/16 16:50 Troponin I 0.021 ng/mL 06/03/16 07:08 Total Protein 7.8 g/dL (6.3-8.2) 06/02/16 16:50 Albumin 4.3 g/dL (3.5-5.0) 06/02/16 16:50 Triglycerides 67 mg/dL (<150) 06/03/16 07:08 Cholesterol 161.82 mg/dL (0-200) 06/03/16 07:08 LDL Cholesterol Direct 78 mg/dL (<100) 06/03/16 07:08 VLDL Cholesterol 13.0 mg/dL (10-31) 06/03/16 07:08 HDL Cholesterol 55 mg/dL (>40) 06/03/16 07:08 Lipase 124.5 U/L (23-300) 06/02/16 16:50 Urine Color YELLOW 06/02/16 19:40 Urine Appearance SLIGHTLY-CLOUDY 06/02/16 19:40 Urine pH 5.0 (5.0-9.0) 06/02/16 19:40 Ur Specific [place] 1.025 06/02/16 19:40 Urine Protein NEGATIVE mg/dL (NEGATIVE) 06/02/16 19:40 Urine Glucose (UA) NEGATIVE mg/dL (NEGATIVE) 06/02/16 19:40 Urine Ketones TRACE mg/dL (NEGATIVE) H 06/02/16 19:40 Urine Blood MODERATE (NEGATIVE) H 06/02/16 19:40 Urine Nitrite NEGATIVE (NEGATIVE) 06/02/16 19:40 Urine Bilirubin NEGATIVE (NEGATIVE) 06/02/16 19:40 Urine Urobilinogen NEGATIVE mg/dL (<2.0) 06/02/16 19:40 Ur Leukocyte Esterase NEGATIVE (NEGATIVE) 06/02/16 19:40 Urine WBC (Auto) 7 /HPF 06/02/16 19:40 Urine RBC (Auto) 15 /HPF 06/02/16 19:40 U Hyaline Cast (Auto) 15 /LPF 06/02/16 19:40 Squamous Epi Cells Auto <1 /HPF 06/02/16 19:40 Calcium Oxalate Cr Auto FEW /HPF 06/02/16 19:40 Urine Mucus (Auto) OCC /LPF 06/02/16 19:40 Urine Ascorbic Acid 20 (NEGATIVE) H 06/02/16 19:40 Impressions: Chest X-Ray 06/02/16 15:53 IMPRESSION: No acute findings. Qualifiers PATEINT BEING DISCHARGED WITH ANY OF THE FOLLOWING DIAGNOSIS?: No Plan Time Spent: Less than 30 Minutes
--- NOTE | 2016-06-04 19:30 | EKG REPORT ---
SEVERITY:- ABNORMAL ECG - SINUS BRADYCARDIA MULTIPLE ATRIAL PREMATURE COMPLEXES : Confirmed by: Diandra Blair MD 04-Jun-2016 19:29:39
== END 2016-06-04 12:06 | disposition home or self-care (01) ==
LOC: ER 14:44 → UNDOADMOB 19:33 → EH 19:33 → 4N 06-03 04:56 → EH 06-03 04:56 → 4N 06-03 07:51 → EH 06-03 07:51
PROVIDERS: ADMIT Family Medicine; ATTEND Family Medicine
DX: R07.9 Chest pain, unspecified (principal); D69.3 Immune thrombocytopenic purpura; E83.52 Hypercalcemia; I10 Essential (primary) hypertension; E21.3 Hyperparathyroidism, unspecified; H54.8 Legal blindness, as defined in USA; H35.52 Pigmentary retinal dystrophy; I34.1 Nonrheumatic mitral (valve) prolapse; Z87.891 Personal history of nicotine dependence; J44.9 Chronic obstructive pulmonary disease, unspecified; R00.1 Bradycardia, unspecified
CPT/HCPCS: 93005 ×3; 99285; 36415 ×2; 82553; 82550; 83690; 83735; 85025; 85610; 85730; 80048; 80053; 81001; 84484 ×2; 80061; 93306; 71020; 93010 ×3; G0378 ×2; A9270 ×10; J3490 ×2